=== PATIENT | male | born 1940 | race Caucasian/White ===

== ENCOUNTER 2019-12-02 04:48 | Emergency (ER) | payer OTHER ==
[2019-12-02 05:24] LABS: Absolute Lymphocytes (CBC) 1.1 K/uL (0.7-4.9); Basophils % 0.6 % (0-1.3); Hematocrit 40.2 % (39.6-49.0); Lymphocytes % 8.7 % (15.3-44.8); MPV 7.5 fL (7.6-11.3)
[2019-12-02 05:33] LABS: Protime INR 1.05
[2019-12-02 06:06] LABS: Albumin 3.2 g/dL (3.4-5.0); Bilirubin Direct 0.1 mg/dL (0-0.2); Bilirubin Total 0.5 mg/dL (0.2-1.0); Protein, Total 7.4 g/dL (6.4-8.2)
[2019-12-02 06:07] LABS: Potassium 4.3 mmol/L (3.5-5.1)
[2019-12-02 06:08] LABS: Troponin (Emerg Dept Use Only) 41.7 ng/mL (0.0-0.045)
[2019-12-02] MEDS ORDERED: ONDANSETRON 4 MG/2 ML VIAL ONE ×2 (06:36→08:33)
[2019-12-02] MEDS ORDERED: MORPHINE 2 MG/ML SYR ONE (06:36)
--- NOTE | 2019-12-02 06:38 | ER ---
Nurse's Notes [facility] Name: Alireza Pulido Age: 79 yrs Sex: Male : 1940 Arrival Date: 12/02/2019 Time: 04:49 Bed 6 Private MD: Diagnosis: Non-ST elevation (NSTEMI) myocardial infarction;Chest pain, unspecified;Pleural effusion in conditions classified elsewhere;Hypotension Presentation: 12/01 04:50 Chief complaint: EMS states: toned out for report of pt having fallen after slipping bb when he got up to go the bathroom pt was unable to get up without assistance pt c/o chest pain with inspiration. Care prior to arrival: Medication(s) given: ASA, 81 mg, x 4. Mechanism of Injury: Fall from standing position. Trauma event details: Injury occurred in the [facility], Injury occurred: at home. Injury occurred: December 02, 2019. 04:50 Acuity: VANDA 2 bb 04:50 Method Of Arrival: EMS: [facility] bb 04:54 Coronavirus screen: At this time, the client does not indicate any symptoms associated bb with coronavirus-19. Ebola Screen: No symptoms or risks identified at this time. Initial Sepsis Screen: Does the patient meet any 2 criteria? No. Patient's initial sepsis screen is negative. Does the patient have a suspected source of infection? No. Patient's initial sepsis screen is negative. Risk Assessment: Do you want to hurt yourself or someone else? Patient reports no desire to harm self or others. Onset of symptoms was December 02, 2019. Care prior to arrival: Glucose check: 144. Trauma Activation: Alert Physician: ED Physician; Name: Rufus; Notified At: 04:43; Arrived At: 04:51 Physician: General Surgeon; Name: ; Notified At: 04:43; Arrived At: Physician: Radiology; Name: Dalila Horner; Notified At: 04:43; Arrived At: 04:47 Physician: Respiratory; Name: ; Notified At: 04:43; Arrived At: Physician: Lab; Name: ; Notified At: 04:43; Arrived At: Historical: - Allergies: 04:55 No Known Allergies; bb - Home Meds: 04:55 Aspirin Oral [Active]; vitamins [Active]; bb - PMHx: 04:55 CVA; bb - PSHx: 04:55 Appendectomy; Tonsillectomy; Cataracts; bb - Immunization history: Last tetanus immunization: unknown. - Social history:: Smoking status: Patient denies any tobacco usage or history of. Patient uses alcohol, but reports only rare drinking. Patient/guardian denies using street drugs. Screenin:52 Abuse screen: Denies injuries from another. Nutritional screening: No deficits noted. jb4 Tuberculosis screening: No symptoms or risk factors identified. Fall risk At risk due to age, prior history of falls. 04:53 Fall Risk Fall in past 12 months (25 points). Total Ma Fall Scale indicates Low Risk jb4 Score (25-44 pts). Fall prevention measures have been instituted. Side Rails Up X 2 Placed close to Nursing Station Frequent Obs/Assesments occuring As available Patient and Family Educated on Fall Prevention Program and strategies. Primary Survey: 04:52 NO uncontrolled hemorrhage observed. A: The patient is alert. Airway: patent, No jb4 supplemental oxygen in use on arrival. Oral cavity: clear, gag reflex present. Breathing/Chest: Respiratory pattern: regular, Respiratory effort: spontaneous, unlabored, Breath sounds: clear, bilaterally. Chest inspection: symmetrical rise and fall of the chest. Circulation: Skin color: pink, Skin temperature: warm, dry. Disability Alert. Exposure/Environment: All clothing and personal items were removed. Forensic evidence collection is not deemed to be indicated at this time. Items placed in patient belonging bag. 05:41 Reassessment Airway Airway Patent Breathing/Chest Respiratory pattern Regular jb4 Respiratory effort Spontaneous Unlabored Chest inspection Symmetrical Circulation Color [place] Temperature Warm Dry Disability Alert. Secondary Survey: 04:52 HEENT: No deficits noted. Gastrointestinal: No deficits noted. Abdomen is soft, jb4 non-distended. : No signs and/or symptoms were reported regarding the genitourinary system. Musculoskeletal: Circulation, motion, and sensation intact. Range of motion: intact in all extremities. Assessment: 04:50 General: Appears in no apparent distress. Behavior is calm, cooperative. Pain: bb Complains of pain in chest Pain currently is 5 out of 10 on a pain scale. 04:53 General: Appears in no apparent distress. comfortable, Behavior is calm, cooperative. jb4 Pain: Complains of pain in chest Pain currently is 5 out of 10 on a pain scale. Neuro: Level of Consciousness is awake, alert, obeys commands, Oriented to person, place, time, situation. Cardiovascular: Heart tones S1 S2 present Patient's skin is warm and dry. Respiratory: Airway is patent Respiratory effort is even, unlabored, Respiratory pattern is regular, symmetrical, Breath sounds are clear bilaterally. GI: No signs and/or symptoms were reported involving the gastrointestinal system. : No signs and/or symptoms were reported regarding the genitourinary system. EENT: No signs and/or symptoms were reported regarding the EENT system. Derm: Skin is intact, Skin is pink, warm \\T\\ dry. Musculoskeletal: Circulation, motion, and sensation intact. Range of motion: intact in all extremities. 05:42 Reassessment: Patient appears in no apparent distress at this time. Patient and/or jb4 family updated on plan of care and expected duration. Pain level reassessed. Patient is alert, oriented x 3, equal unlabored respirations, skin warm/dry/pink. 06:15 Reassessment: Patient appears in no apparent distress at this time. Patient and/or jb4 family updated on plan of care and expected duration. Pain level reassessed. Patient is alert, oriented x 3, equal unlabored respirations, skin warm/dry/pink. Pt reports being at a friends house earlier. Denies consuming alcohol or taking enhancement agents such as viagra. 07:05 Reassessment: PT in CT. ph 08:15 Reassessment: Patient appears in no apparent distress at this time. Patient is alert, ph oriented x 3, equal unlabored respirations, skin warm/dry/pink. Pt c/o chest pain, states, "They gave some morphine but it really didn't help." ERP notified, pain medication and repeat EKG ordered. 08:37 Reassessment: Patient appears in no apparent distress at this time. Patient and/or ph family updated on plan of care and expected duration. Pain level reassessed. Patient is alert, oriented x 3, equal unlabored respirations, skin warm/dry/pink. Dr Oconnor at bedside to speak w/ pt, pt states that EMS administered 81 mg ASA x 4 en route to ED. 09:35 Reassessment: Patient appears in no apparent distress at this time. Patient and/or ph family updated on plan of care and expected duration. Pain level reassessed. Patient is alert, oriented x 3, equal unlabored respirations, skin warm/dry/pink. Report given to [facility] [employer], pt flown to [facility]. Vital Signs: 04:50 BP 103 / 57; Pulse 101; Resp 18 S; Temp 99.1(O); Pulse Ox 95% on R/A; Weight 108.86 kg bb (R); Height 6 ft. 0 in. (182.88 cm) (R); Pain 5/10; 05:42 BP 108 / 50; Pulse 99; Resp 19; Pulse Ox 99% on R/A; jb4 06:00 BP 114 / 63; Pulse 94; Resp 16; Pulse Ox 98% on R/A; jb4 06:30 BP 90 / 50; Pulse 110; Resp 16; Pulse Ox 95% on R/A; jb4 07:45 BP 98 / 60; Pulse 95; Resp 18; Temp 98.7; Pulse Ox 98% on R/A; ph 08:45 BP 96 / 59; Pulse 86; Resp 18; Temp 98.1; Pulse Ox 97% on R/A; ph 09:37 BP 98 / 62; Pulse 91; Resp 16; Temp 98.4; Pulse Ox 97% on R/A; ph 04:50 Body Mass Index 32.55 (108.86 kg, 182.88 cm) bb Ryan Coma Score: 04:52 Eye Response: spontaneous(4). Verbal Response: oriented(5). Motor Response: obeys jb4 commands(6). Total: 15. 05:42 Eye Response: spontaneous(4). Verbal Response: oriented(5). Motor Response: obeys jb4 commands(6). Total: 15. 06:00 Eye Response: spontaneous(4). Verbal Response: oriented(5). Motor Response: obeys jb4 commands(6). Total: 15. 06:30 Eye Response: spontaneous(4). Verbal Response: oriented(5). Motor Response: obeys jb4 commands(6). Total: 15. 07:45 Eye Response: spontaneous(4). Verbal Response: oriented(5). Motor Response: obeys ph commands(6). Total: 15. 08:45 Eye Response: spontaneous(4). Verbal Response: oriented(5). Motor Response: obeys ph commands(6). Total: 15. 09:37 Eye Response: spontaneous(4). Verbal Response: oriented(5). Motor Response: obeys ph commands(6). Total: 15. Trauma Score (Adult): 04:52 Eye Response: spontaneous(1); Verbal Response: oriented(1); Motor Response: obeys jb4 commands(2); Systolic BP: > 89 mm Hg(4); Respiratory Rate: 10 to 29 per min(4); Etlan Score: 15; Trauma Score: 12 05:42 Eye Response: spontaneous(1); Verbal Response: oriented(1); Motor Response: obeys jb4 commands(2); Systolic BP: > 89 mm Hg(4); Respiratory Rate: 10 to 29 per min(4); Etlan Score: 15; Trauma Score: 12 06:00 Eye Response: spontaneous(1); Verbal Response: oriented(1); Motor Response: obeys jb4 commands(2); Systolic BP: > 89 mm Hg(4); Respiratory Rate: 10 to 29 per min(4); Ryan Score: 15; Trauma Score: 12 06:30 Eye Response: spontaneous(1); Verbal Response: oriented(1); Motor Response: obeys jb4 commands(2); Systolic BP: > 89 mm Hg(4); Respiratory Rate: 10 to 29 per min(4); Etlan Score: 15; Trauma Score: 12 07:45 Eye Response: spontaneous(1); Verbal Response: oriented(1); Motor Response: obeys ph commands(2); Systolic BP: > 89 mm Hg(4); Respiratory Rate: 10 to 29 per min(4); Ryan Score: 15; Trauma Score: 12 08:45 Eye Response: spontaneous(1); Verbal Response: oriented(1); Motor Response: obeys ph commands(2); Systolic BP: > 89 mm Hg(4); Respiratory Rate: 10 to 29 per min(4); Ryan Score: 15; Trauma Score: 12 09:37 Eye Response: spontaneous(1); Verbal Response: oriented(1); Motor Response: obeys ph commands(2); Systolic BP: > 89 mm Hg(4); Respiratory Rate: 10 to 29 per min(4); Etlan Score: 15; Trauma Score: 12 ED Course: 04:49 Patient arrived in ED. ag3 04:50 Jeff Hooper MD is Attending Physician. 7 04:51 Suraj Meza, RN is Primary Nurse. jb4 04:52 Triage completed. bb 04:52 Patient has correct armband on for positive identification. Bed in low position. Call jb4 light in reach. Side rails up X 1. 04:52 Patient maintains SpO2 saturation greater than 95% on room air. Thermoregulation: warm jb4 blanket given to patient. 04:53 classroom monitor on. Pulse ox on. NIBP on. jb4 04:55 Arm band placed on Patient placed in an exam room, on a stretcher, on alarm security or surveillance monitor, bb on pulse oximetry. EKG completed in triage. Results shown to MD. 05:10 Initial lab(s) drawn, by wi, sent to lab. Inserted saline lock: 20 gauge in right jb4 antecubital area, using aseptic technique. Blood collected. 05:27 XRAY Chest (1 view) In Process Unspecified. EDMS 06:36 Prince Ferreira MD is Hospitalizing Provider. mh7 07:01 CT Chest Abdomen Pelvis W/O Contrast In Process Unspecified. EDMS 08:30 EKG done, by ED staff, reviewed by Damaso Oconnor MD. dh3 08:39 Attending Physician role handed off by Jeff Hooper MD marco antonio 08:39 Damaso Oconnor MD is Attending Physician. marco antonio 08:[address] Oconnor with Shraddha Wang Rn the [facility] Transfer eb Center. 08:42 connected the vehicle check in clerk cardiopulmonary technologist chief for [facility] with Dr. Oconnor for patient eb transfer consultation. 08:51 administrative approval given by Shraddha Wang/ patient has been accepted to [facility] Park Maintenance Technician/ Dr. Mackay has accepted the patient in transfer. report to be called to the transfer center at [phone]. 09:10 Inserted saline lock: 18 gauge in left antecubital area, using aseptic technique. dh3 09:35 No provider procedures requiring assistance completed. Patient transferred, IV remains ph in place. Administered Medications: 06:27 Drug: Zofran (Ondansetron) 4 mg Route: IVP; Site: right antecubital; jb4 06:52 Follow up: Response: No adverse reaction jb4 06:29 Drug: morphine 2 mg Route: IVP; Site: right antecubital; jb4 06:51 Follow up: Response: No adverse reaction; Pain is decreased; RASS: Alert and Calm (0) jb4 06:43 Not Given (Hemodynamic Parameters): Lopressor 5 mg IVP every 5 minutes; Hold for SBP < jb4 100 or HR < 60. x3 06:46 Drug: NS 0.9% 500 ml Route: IV; Rate: bolus; Site: right antecubital; jb4 07:45 Follow up: Response: No adverse reaction; IV Status: Completed infusion; IV Intake: ph 500ml 08:00 Not Given (Other Intervention Used): Lovenox 1 mg/kg Sub-Q once ph 08:15 Drug: PlaVIX 300 mg Route: PO; ph 09:38 Follow up: Response: No adverse reaction ph 08:18 Drug: Heparin (CO-Bolus No thrombolytic) - HEParin 60 units/kg {Co-Signature: sv ph (Mariam Brown RN).} Route: IVP; Site: right antecubital; 09:37 Follow up: Response: No adverse reaction ph 08:20 Drug: Heparin (CO Drip) 12 units/kg/hr - (HEParin 14346 units, D5W 500 ml) ph {Co-Signature: sv (Mariam Brown RN).} Route: IV; Rate: calculated rate; Site: right antecubital; 09:37 Follow up: IV Status: Infusion continued upon transfer ph 08:28 Drug: Zofran (Ondansetron) 4 mg Route: IVP; Site: right antecubital; ph 09:39 Follow up: Response: No adverse reaction ph 08:30 Drug: fentaNYL (PF) 25 mcg Route: IVP; Site: right antecubital; ph 09:00 Follow up: Response: No adverse reaction; Pain is decreased; RASS: Alert and Calm (0) ph Intake: 04:50 PO: 0ml; Total: 0ml. bb 07:45 IV: 500ml; Total: 500ml. ph Outcome: 06:37 Decision to Hospitalize by Provider. mh7 08:54 ER care complete, transfer ordered by . marco antonio 09:35 [facility]red by helicopter [facility] form completed. ph X-rays sent w/ patient. 09:35 Condition: stable 09:35 Instructed on the need for transfer. 09:35 Patient's length of stay was not longer than 2 hours. 09:39 Patient left the ED. ph Signatures: Dispatcher [employer] EDMS Damaso Oconnor MD MD cha Ballard, Brenda, RN RN Sulma Ordonez RN RN Suraj Meza RN RN jb4 Giana Olson [facility] Pamela Barber Alice Jeff Sandoval MD MD [facility] Mariam Brown RN sv Corrections: (The following items were deleted from the chart) 04:55 04:53 Fall Risk Fall in past 12 months (25 points). jb4 jb4 06:34 06:31 morphine 2 mg IVP in right antecubital jb4 jb4 06:34 06:29 Zofran (Ondansetron) 4 mg IVP in right antecubital jb4 jb4 08:51 08:[address] Oconnor with the [facility] Transfer Center. eb eb
--- NOTE | 2019-12-02 06:38 | EDPHYS ---
Physician Documentation [facility] Name: Alireza Pulido Age: 79 yrs Sex: Male : 1940 Arrival Date: 12/02/2019 Time: 04:49 Bed 6 Private MD: ED Physician Damaso Oconnor HPI: 12/01 05:01 This 79 yrs old Male presents to ER via EMS with complaints of Fall Injury. [facility] 05:02 Severity of symptoms: At their worst the symptoms were moderate, earlier today, in the [facility] emergency department the symptoms have improved, moderately. 06:29 The patient or guardian reports chest pain that is located primarily in the substernal [facility] area. Onset: today, at 02:00. The pain does not radiate. Associated signs and symptoms: Pertinent negatives: abdominal pain, cough, diaphoresis, dizziness, headache, lower extremity pain, lower extremity swelling, lightheadedness, nausea, near syncope, palpitations, recent travel, shortness of breath, syncope, vomiting. The chest pain is described as a pressure. Duration: The patient or guardian reports multiple episodes, that are intermittent, that wax and wane, with no pattern. Modifying factors: The symptoms are alleviated by ASA, 81mg X4. the symptoms are aggravated by nothing. Severity of pain: At its worst the pain was moderate today, in the emergency department the pain has improved moderately. EMS care prior to arrival includes: aspirin. 06:29 Patient states that he slid out of bed onto floor and was having chest pain. He denies [facility] any falls onto floor or any injuries.. Historical: - Allergies: 04:55 No Known Allergies; bb - Home Meds: 04:55 Aspirin Oral [Active]; vitamins [Active]; bb - PMHx: 04:55 CVA; bb - PSHx: 04:55 Appendectomy; Tonsillectomy; Cataracts; bb - Immunization history: Last tetanus immunization: unknown. - Social history:: Smoking status: Patient denies any tobacco usage or history of. Patient uses alcohol, but reports only rare drinking. Patient/guardian denies using street drugs. ROS: 05:02 Constitutional: Negative for fever, chills, and weight loss, Eyes: Negative for injury, [facility] pain, redness, and discharge, ENT: Negative for injury, pain, and discharge, Neck: Negative for injury, pain, and swelling, Abdomen/GI: Negative for abdominal pain, nausea, vomiting, diarrhea, and constipation, Back: Negative for injury and pain, : Negative for injury, bleeding, discharge, and swelling, MS/Extremity: Negative for injury and deformity, Skin: Negative for injury, rash, and discoloration, Neuro: Negative for headache, weakness, numbness, tingling, and seizure, Psych: Negative for depression, anxiety, suicide ideation, homicidal ideation, and hallucinations, Allergy/Immunology: Negative for hives, rash, and allergies, Endocrine: Negative for neck swelling, polydipsia, polyuria, polyphagia, and marked weight changes, Hematologic/Lymphatic: Negative for swollen nodes, abnormal bleeding, and unusual bruising. Exam: 05:02 Constitutional: This is a well developed, well nourished patient who is awake, alert, mh7 and in no acute distress. Head/Face: Normocephalic, atraumatic. Eyes: Pupils equal round and reactive to light, extra-ocular motions intact. Lids and lashes normal. Conjunctiva and sclera are non-icteric and not injected. Cornea within normal limits. Periorbital areas with no swelling, redness, or edema. Neck: Trachea midline, no thyromegaly or masses palpated, and no cervical lymphadenopathy. Supple, full range of motion without nuchal rigidity, or vertebral point tenderness. No Meningismus. Chest/axilla: Normal chest wall appearance and motion. Nontender with no deformity. No lesions are appreciated. Cardiovascular: Regular rate and rhythm with a normal S1 and S2. No gallops, murmurs, or rubs. Normal PMI, no JVD. No pulse deficits. Respiratory: Lungs have equal breath sounds bilaterally, clear to auscultation and percussion. No rales, rhonchi or wheezes noted. No increased work of breathing, no retractions or nasal flaring. Abdomen/GI: Soft, non-tender, with normal bowel sounds. No distension or tympany. No guarding or rebound. No evidence of tenderness throughout. Back: No spinal tenderness. No costovertebral tenderness. Full range of motion. Skin: Warm, dry with normal turgor. Normal color with no rashes, no lesions, and no evidence of cellulitis. MS/ Extremity: Pulses equal, no cyanosis. Neurovascular intact. Full, normal range of motion. Neuro: Awake and alert, GCS 15, oriented to person, place, time, and situation. Cranial nerves II-XII grossly intact. Motor strength 5/5 in all extremities. Sensory grossly intact. Cerebellar exam normal. Normal gait. Psych: Awake, alert, with orientation to person, place and time. Behavior, mood, and affect are within normal limits. Vital Signs: 04:50 BP 103 / 57; Pulse 101; Resp 18 S; Temp 99.1(O); Pulse Ox 95% on R/A; Weight 108.86 kg bb (R); Height 6 ft. 0 in. (182.88 cm) (R); Pain 5/10; 05:42 BP 108 / 50; Pulse 99; Resp 19; Pulse Ox 99% on R/A; jb4 06:00 BP 114 / 63; Pulse 94; Resp 16; Pulse Ox 98% on R/A; jb4 06:30 BP 90 / 50; Pulse 110; Resp 16; Pulse Ox 95% on R/A; jb4 07:45 BP 98 / 60; Pulse 95; Resp 18; Temp 98.7; Pulse Ox 98% on R/A; ph 08:45 BP 96 / 59; Pulse 86; Resp 18; Temp 98.1; Pulse Ox 97% on R/A; ph 09:37 BP 98 / 62; Pulse 91; Resp 16; Temp 98.4; Pulse Ox 97% on R/A; ph 04:50 Body Mass Index 32.55 (108.86 kg, 182.88 cm) bb Ryan Coma Score: 04:52 Eye Response: spontaneous(4). Verbal Response: oriented(5). Motor Response: obeys jb4 commands(6). Total: 15. 05:42 Eye Response: spontaneous(4). Verbal Response: oriented(5). Motor Response: obeys jb4 commands(6). Total: 15. 06:00 Eye Response: spontaneous(4). Verbal Response: oriented(5). Motor Response: obeys jb4 commands(6). Total: 15. 06:30 Eye Response: spontaneous(4). Verbal Response: oriented(5). Motor Response: obeys jb4 commands(6). Total: 15. 07:45 Eye Response: spontaneous(4). Verbal Response: oriented(5). Motor Response: obeys ph commands(6). Total: 15. 08:45 Eye Response: spontaneous(4). Verbal Response: oriented(5). Motor Response: obeys ph commands(6). Total: 15. 09:37 Eye Response: spontaneous(4). Verbal Response: oriented(5). Motor Response: obeys ph commands(6). Total: 15. Trauma Score (Adult): 04:52 Eye Response: spontaneous(1); Verbal Response: oriented(1); Motor Response: obeys jb4 commands(2); Systolic BP: > 89 mm Hg(4); Respiratory Rate: 10 to 29 per min(4); Holland Score: 15; Trauma Score: 12 05:42 Eye Response: spontaneous(1); Verbal Response: oriented(1); Motor Response: obeys jb4 commands(2); Systolic BP: > 89 mm Hg(4); Respiratory Rate: 10 to 29 per min(4); Holland Score: 15; Trauma Score: 12 06:00 Eye Response: spontaneous(1); Verbal Response: oriented(1); Motor Response: obeys jb4 commands(2); Systolic BP: > 89 mm Hg(4); Respiratory Rate: 10 to 29 per min(4); Holland Score: 15; Trauma Score: 12 06:30 Eye Response: spontaneous(1); Verbal Response: oriented(1); Motor Response: obeys jb4 commands(2); Systolic BP: > 89 mm Hg(4); Respiratory Rate: 10 to 29 per min(4); Holland Score: 15; Trauma Score: 12 07:45 Eye Response: spontaneous(1); Verbal Response: oriented(1); Motor Response: obeys ph commands(2); Systolic BP: > 89 mm Hg(4); Respiratory Rate: 10 to 29 per min(4); Ryan Score: 15; Trauma Score: 12 08:45 Eye Response: spontaneous(1); Verbal Response: oriented(1); Motor Response: obeys ph commands(2); Systolic BP: > 89 mm Hg(4); Respiratory Rate: 10 to 29 per min(4); Holland Score: 15; Trauma Score: 12 09:37 Eye Response: spontaneous(1); Verbal Response: oriented(1); Motor Response: obeys ph commands(2); Systolic BP: > 89 mm Hg(4); Respiratory Rate: 10 to 29 per min(4); Ryan Score: 15; Trauma Score: 12 MDM: 04:57 Patient medically screened. [facility] 06:29 Differential diagnosis: abnormal EKG, acute myocardial infarction, acute pericarditis, mh7 anxiety, coronary artery disease chest wall pain, congestive heart failure costochondritis, myocarditis, pericarditis, pneumonia. HEART Score: History: Moderately Suspicious (1), ECG: Non specific repolarization disturbance / LBTB / PM (1), Age: > or = 65 years (2), Risk Factors: No Risk Factors Known (0), Troponin: > or = 3 x Normal Limit (2), Total Score = 5. The patient was not given aspirin in the Emergency Department. Administered by EMS. Data reviewed: vital signs, nurses notes, EMS record, lab test result(s), cardiac enzymes, CBC, electrolytes, urinalysis, radiologic studies, plain films. Data interpreted: Pulse oximetry: on room air is 99 %. Interpretation: normal. Counseling: I had a detailed discussion with the patient and/or guardian regarding: the historical points, exam findings, and any diagnostic results supporting the discharge/admit diagnosis, lab results, radiology results, the need for further work-up and treatment in the hospital. Physician consultation: Janes Carpio MD was contacted at 06:22, regarding patient's condition, and will see patient in inpatient room, would like admission per Dr. Prince Hanna ROBERTS. 12/01 04:57 Order name: Basic Metabolic Panel; Complete Time: 06:09 12/01 04:57 Order name: CBC with Diff; Complete Time: 07:50 12/01 04:57 Order name: LFT's; Complete Time: 06:09 12/01 04:57 Order name: Magnesium; Complete Time: 06:09 12/01 04:57 Order name: NT PRO-BNP; Complete Time: 06:12/01 04:57 Order name: PT-INR; Complete Time: 05:43 12/01 04:57 Order name: Troponin (emerg Dept Use Only); Complete Time: 06:09 12/01 04:57 Order name: XRAY Chest (1 view) [facility] 12/01 05:22 Order name: Lipase; Complete Time: 06:09 EDMS 12/01 05:38 Order name: Manual Differential; Complete Time: 07:50 EDMS 12/01 06:39 Order name: CT Chest Abdomen Pelvis W/O Contrast; Complete Time: 07:50 7 12/01 08:33 Order name: Urine Dipstick--Ancillary (enter results) eb 12/01 08:35 Order name: PTT, Activated Partial Thromb EDIA 12/01 04:57 Order name: EKG; Complete Time: 04:58 [facility] 12/01 04:57 Order name: Cardiac monitoring; Complete Time: 04:59 [facility] 12/01 04:57 Order name: EKG - Nurse/Tech; Complete Time: 04:59 [facility] 12/01 04:57 Order name: IV Saline Lock; Complete Time: 05:19 7 12/01 04:57 Order name: Labs collected and sent; Complete Time: 05:19 [facility] 12/01 04:57 Order name: O2 Per Protocol; Complete Time: 04:59 [facility] 12/01 04:57 Order name: O2 Sat Monitoring; Complete Time: 04:59 7 12/01 08:56 Order name: IV Saline Lock - Large Bore; Complete Time: 09:11 marco antonio Administered Medications: 06:27 Drug: Zofran (Ondansetron) 4 mg Route: IVP; Site: right antecubital; jb4 06:52 Follow up: Response: No adverse reaction jb4 06:29 Drug: morphine 2 mg Route: IVP; Site: right antecubital; jb4 06:51 Follow up: Response: No adverse reaction; Pain is decreased; RASS: Alert and Calm (0) jb4 06:43 Not Given (Hemodynamic Parameters): Lopressor 5 mg IVP every 5 minutes; Hold for SBP < jb4 100 or HR < 60. x3 06:46 Drug: NS 0.9% 500 ml Route: IV; Rate: bolus; Site: right antecubital; jb4 07:45 Follow up: Response: No adverse reaction; IV Status: Completed infusion; IV Intake: ph 500ml 08:00 Not Given (Other Intervention Used): Lovenox 1 mg/kg Sub-Q once ph 08:15 Drug: PlaVIX 300 mg Route: PO; ph 09:38 Follow up: Response: No adverse reaction ph 08:18 Drug: Heparin (DC-Bolus No thrombolytic) - HEParin 60 units/kg {Co-Signature: sv ph (Mariam Brown RN).} Route: IVP; Site: right antecubital; 09:37 Follow up: Response: No adverse reaction ph 08:20 Drug: Heparin (DC Drip) 12 units/kg/hr - (HEParin 40507 units, D5W 500 ml) ph {Co-Signature: sv (Mariam Brown RN).} Route: IV; Rate: calculated rate; Site: right antecubital; 09:37 Follow up: IV Status: Infusion continued upon transfer ph 08:28 Drug: Zofran (Ondansetron) 4 mg Route: IVP; Site: right antecubital; ph 09:39 Follow up: Response: No adverse reaction ph 08:30 Drug: fentaNYL (PF) 25 mcg Route: IVP; Site: right antecubital; ph 09:00 Follow up: Response: No adverse reaction; Pain is decreased; RASS: Alert and Calm (0) ph Disposition: 12/02/19 08:54 Transfer ordered to [facility]. Diagnosis are Non-ST elevation (NSTEMI) myocardial infarction, Chest pain, unspecified, Pleural effusion in conditions classified elsewhere, Hypotension. - Reason for transfer: Higher level of care. - Accepting physician is dr flynn. - Condition is Serious. - Problem is new. - Symptoms have worsened. Signatures: Dispatcher [employer] [facility] Damaso Oconnor MD MD cha Ballard, Brenda RN RN Sulma Ayala RN RN ph Bryson, James, RN RN jbPamela Warren Maurice, MD MD Yunior Brown RN sv Corrections: (The following items were deleted from the chart) 05:22 05:02 LIPASE+C.LAB.BRZ ordered. [facility] 06:33 05:01 Details of fall: The patient fell from an upright position, while standing, [place] [id number] 06:33 05:01 Onset: The symptoms/episode began/occurred today, at 02:00, [place] [id number] 06:33 05:01 Associated injuries: The patient sustained injury to the chest, specifically the [facility] mid-sternal area, mh7 07:37 06:37 Hospitalization Ordered by Prince Hanna ROBERTS for Inpatient Admission. Preliminary eb diagnosis is Non STEMI. Bed requested for Telemetry/MedSurg (Inpatient). Status is Inpatient Admission. Condition is Stable. Problem is new. Symptoms have improved. mh7 08:47 07:37 12/02/2019 06:37 Hospitalization Ordered by Prince Hanna ROBERTS for Inpatient marco antonio Admission. Preliminary diagnosis is Non STEMI. Bed requested for Telemetry/MedSurg (Inpatient). Status is Inpatient Admission. Condition is Stable. Problem is new. Symptoms have improved. eb 08:47 08:47 12/02/2019 06:37 Hospitalization Ordered by Prince Hanna ROBERTS for Inpatient marco antonio Admission. Preliminary diagnosis is Non STEMI; Angina pectoris; Hypotension; Pleural effusion in conditions classified elsewhere. Bed requested for Telemetry/MedSurg (Inpatient). Status is Inpatient Admission. Condition is Stable. Problem is new. Symptoms have improved. marco antonio 09:39 08:54 12/02/2019 08:54 Transfer ordered to [facility]. ph Diagnosis is Non-ST elevation (NSTEMI) myocardial infarction; Chest pain, unspecified; Pleural effusion in conditions classified elsewhere; Hypotension. Reason for transfer: Higher level of care. Accepting physician is dr flynn. Condition is Serious. Problem is new. Symptoms have worsened. marco antonio
[2019-12-02] MEDS ORDERED: NA CHLORIDE 0.9% 500 ML ONE (06:57)
[2019-12-02 07:03] LABS: Blood Morphology Comment NOT SEEN (NOT SEEN); Platelet Estimate ADEQ
--- NOTE | 2019-12-02 07:28 | RAD REPORT ---
EXAM DESCRIPTION: CT - Chest Abd Pelvis Wo Con - 12/02/2019 7:01 am CLINICAL HISTORY: CHEST PAIN, abdominal pain, fall COMPARISON: No comparisons TECHNIQUE: Axial 5 millimeter thick images of the chest, abdomen and pelvis were obtained without IV contrast. Oral contrast was administered. All CT scans are performed using dose optimization technique as appropriate and may include automated exposure control or mA/KV adjustment according to patient size. FINDINGS: No pneumothorax or pulmonary contusion seen. Scarring changes are present in the lung pare nchyma. No pneumothorax is present. Moderate-sized partially loculated left pleural effusion is prese nt. There is partial left lower lobe atelectasis. Small infiltrate within the atelectatic lung cannot be excluded. Lung mass is unlikely but cannot be fully evaluated in the setting of atelectasis. Pleu ral fluid is low attenuation. Pleural blood is not suspected. No chest wall mass or abnormal axillary lymphadenopathy seen. Mediastinal and hilar regions show no mass or lymphadenopathy. Minimal pericardial effusion seen. Patient has old rib fractures in the le ft 7th-10th ribs. No acute rib fracture is seen. No dislocation of either humeral head. The liver, spleen and pancreas show no significant findings for non contrast imaging. Gallbladder an d biliary tree are normal. No hydronephrosis or suspicious renal mass. Isodense masses and pyelonephritis cannot be excluded on non contrast imaging. No adrenal abnormalities. No urinary bladder abnormalities. No dilated bowel loops or focal ball bowel wall thickening. No free air, free fluid or inflammatory stranding. No mass or bulky lymphadenopathy. Small umbilical fat only hernia is present no significa nce. Prominent vertebral body degenerative changes are present. An acute thoracolumbar vertebral body frac ture is not identified. No fracture of the bony pelvis or proximal femora. Transverse fracture line i s present at the sacrum coccygeal junction. Fracture line is somewhat indistinct suggesting that this may be subacute and related to a prior fall. No displacement. Patient may have slight contusion in t he subcutaneous fat lateral to the left hip joint. IMPRESSION: Moderate size partially loculated left pleural effusion with partial atelectasis of the left lower lobe. A small mass or infiltrate could be masked in the atelectatic lung. No acute rib fracture. Patient has multiple old lower left rib fractures. The left-sided pleural flui d is not suspected to have a hemothorax component. No traumatic injury to the abdomen or pelvis of significance. Patient may have minimal contusion in t he subcutaneous fat lateral to the left hip joint. Nondisplaced fracture is present at the sacrum coccygeal junction. The appearance suggests a subacute injury and may be related to a prior fall. This can be correlated with history or localized pain sym ptoms. No vertebral body, bony pelvic or proximal femoral fracture.
[2019-12-02] MEDS ORDERED: HEPARIN 5000 UNIT/ML 1 ML VIAL ONE (08:16)
[2019-12-02] MEDS ORDERED: HEPARIN/D5W 25,000 UNIT/500 ML BAG IV ONE (08:16)
[2019-12-02] MEDS ORDERED: CLOPIDOGREL 75 MG TABLET ONE (08:16)
[2019-12-02] MEDS ORDERED: FENTANYL CITR 100 MCG/2 ML ONE (08:33)
[2019-12-02 09:57] VITALS: O2SAT 97
[2019-12-02 09:58] VITALS: BP 98/62; TEMP 98.4
[2019-12-02 10:23] LABS: Urine Blood NEGATIVE (NEG); Urine Glucose NEGATIVE (NEG); Urine Protein NEGATIVE (NEG); Urine Specific Gravity 1.025 (1.005-1.030); Urine pH 5.5 (5.0-7.0)
--- NOTE | 2019-12-03 11:13 | EKG ---
Test Date: 2019-12-02 Test Time: 04:52:14 Forensic Ballistics Expert: ASIF MEASUREMENT RESULTS: Intervals: Rate: 94 TN: QRSD: 86 QT: 354 QTc: 442 [place]: P: TN: QRS: 2 T: -21 INTERPRETIVE STATEMENTS: afib,st elevation laterally c/w acute mi Cannot rule out Inferior infarct, age undetermined Abnormal ECG No previous ECG available for comparison Electronically Signed On 12-03-19 11:13:18 CDT by Janes Carpio
--- NOTE | 2019-12-04 07:47 | EKG ---
Test Date: 2019-12-02 Test Time: 08:30:30 Brass Roller: BETTE MEASUREMENT RESULTS: Intervals: Rate: 102 MT: QRSD: 82 QT: 380 QTc: 495 [place]: P: MT: QRS: 65 T: 9 INTERPRETIVE STATEMENTS: Atrial fibrillation with rapid ventricular response ST elevation, consider inferior injury or acute infarct ACUTE MD Abnormal ECG Compared to ECG 12/02/2019 06:21:47 Myocardial infarct finding now present ST (T wave) deviation still present Electronically Signed On 12-04-19 07:43:31 CDT by Janes Carpio
--- NOTE | 2019-12-04 07:47 | EKG ---
Test Date: 2019-12-02 Test Time: 06:21:47 Air Export Operations Agent: BLAYNE MEASUREMENT RESULTS: Intervals: Rate: 103 [place]: QRSD: 86 QT: 352 QTc: 461 [place]: P: [place]: QRS: 61 T: 79 INTERPRETIVE STATEMENTS: Atrial fibrillation with rapid ventricular response Nonspecific ST and T wave abnormality, probably digitalis effect Abnormal ECG Compared to ECG 12/02/2019 04:52:14 ST (T wave) deviation now present Myocardial infarct finding no longer present Electronically Signed On 12-04-19 07:43:34 CDT by Janes Carpio
--- NOTE | 2019-12-04 10:43 | RAD REPORT ---
EXAM DESCRIPTION: RAD - Chest Single View - 12/02/2019 5:27 am CLINICAL HISTORY: The patient is 79 years old and is Male; CHEST PAIN TECHNIQUE: Single upright view of the chest. COMPARISON: No relevant prior studies available. FINDINGS: Lungs: No pulmonary vascular congestion. No consolidation. Pleural space: Small left pleural effusion. No pneumothorax. Heart: Unremarkable. No cardiomegaly. Mediastinum: Unremarkable. Bones/joints: Multiple left lateral rib fractures, possibly acute. Degenerative changes in the bilateral shoulders. Upper abdomen: No free air in the visualized upper abdomen. IMPRESSION: 1. Multiple left lateral rib fractures, possibly acute. 2. Small left pleural effusion. No pneumothorax. Electronically signed by: Mariam Arnett MD 12/02/2019 6:32 AM CDT Due to temporary technical issues with the PACS/Fluency reporting system, reports are being signed by the in house radiologist without review as a courtesy to ensure prompt reporting. The interpreting r adiologist is fully responsible for the content of the report.
== END 2019-12-02 09:39 | disposition short-term general hospital (02) ==
LOC: ER 04:48 → ERHOLD 07:15 → UNDOADMIN 07:15 → UNDODISIN 09:36
DX: I21.4 Non-ST elevation (NSTEMI) myocardial infarction (principal); I95.9 Hypotension, unspecified; J91.8 Pleural effusion in other conditions classified elsewhere; S22.42XA Multiple fractures of ribs, left side, initial encounter for closed fracture; W01.0XXA Fall on same level from slipping, tripping and stumbling without subsequent striking against object, initial encounter; Y93.89 Activity, other specified; Y92.009 Unspecified place in unspecified non-institutional (private) residence as the place of occurrence of the external cause; Z79.82 Long term (current) use of aspirin; Z86.73 Personal history of transient ischemic attack (TIA), and cerebral infarction without residual deficits
CPT/HCPCS: 36415; 71045; 71250; 74176; 80048; 80076; 81003; 83690; 83735; 83880; 84484; 85025; 85610; 85730; 93005; 96361; 96365; 96375; 99285; G0390; J1644; J2270; J2405; J3010; J7040

== ENCOUNTER 2024-01-20 06:54 | Inpatient (IN) | payer OTHER ==
--- NOTE | 2024-01-20 07:50 | RAD REPORT ---
EXAMINATION: CT HEAD WITHOUT CONTRAST CLINICAL INDICATION: Male, 83 years old.WEAKNESS TECHNIQUE: Axial CT images from the skull base to the vertex without intravenous contrast. Coronal an d sagittal reformatted images were created from the data set. One or more of the following dose reduction techniques were used: Automated exposure control, adjustment of the mA and/or kV according to patient size, and/or iterative reconstruction. Unless otherwise specified, incidental findings do not require dedicated imaging follow-up. [id number]. COMPARISON: No prior exam. FINDINGS: INTRACRANIAL: No acute intracranial hemorrhage. No hydrocephalus. No mass effect or midline shift. Mo derate chronic small vessel ischemic changes. Cerebral atrophy. VASCULATURE: No visualized abnormalities in the arteries or dural venous sinuses. SCALP/SKULL: No significant soft tissue or osseous abnormalities. SINUSES: The visualized paranasal sinuses and mastoid air cells are predominantly clear. IMPRESSION: No acute intracranial abnormality.
--- NOTE | 2024-01-20 07:51 | RAD REPORT ---
EXAM: Chest Single View HISTORY: weakness COMPARISON: 12/02/2019 FINDINGS: LUNGS/PLEURA: Probably moderate bilateral pleural effusions and underlying atelectasis. Pulmonary julito ma suspected. MEDIASTINUM: The mediastinal silhouette is within normal limits. CARDIAC: Cardiomegaly. UPPER ABDOMEN: No significant abnormality. BONES: No acute fracture. LINES/TUBES/OTHER: N/A IMPRESSION: Suspect moderate bilateral pleural effusions and probably underlying atelectasis. Findings likely ind icate pulmonary edema.
[2024-01-20] MEDS ORDERED: NA CHLORIDE 0.9% 500 ML ONE (07:55)
[2024-01-20 08:10] LABS: Absolute Basophils 0.1 K/uL (0-0.5); Absolute Eosinophils 0.1 K/uL (0-0.5); Absolute Monocytes 0.9 K/uL (0.1-1.3); Absolute Neutrophil 8.3 K/uL (1.8-8.0); Basophils % 0.5 % (0-1.3); Eosinophils % 0.9 % (0-4.4); Hematocrit 34.5 % (39.6-49.0); Hemoglobin 11.3 g/dL (13.6-17.9); Lymphocytes % 9.5 % (15.3-44.8); MCH 32.8 pg (27.0-35.0); MCHC 32.7 g/dL (32.0-36.0); MCV 100.3 fL (80-100); MPV 7.4 fL (7.6-11.3); Monocytes % 9.1 % (3.3-12.3); Platelets 225 thou/uL (152-406); RBC Red Blood Cell Count 3.44 M/uL (4.33-5.43); Red Cell Distribution Width 15.8 % (12.1-15.2)
[2024-01-20 08:24] LABS: Albumin 2.8 g/dL (3.4-5.0); Albumin/Globulin Ratio 0.7 (1.1-1.8); Bilirubin Direct 0.4 mg/dL (0-0.2); Bilirubin Total 1.4 mg/dL (0.2-1.0); Globulin 4.2 g/dL (2.3-3.5); Magnesium 1.9 mg/dL (1.6-2.4); Troponin High Sensitivity 38.3 pg/mL (<58.9)
[2024-01-20 08:27] LABS: PT Prothrombin Time 14.3 SECONDS (9.4-12.5); PTT, Activated Partial Thromb 23.5 SECONDS (24.3-36.9); Protime INR 1.29
--- NOTE | 2024-01-20 09:39 | RAD REPORT ---
EXAMINATION: CT ABDOMEN AND PELVIS WITHOUT CONTRAST CLINICAL INDICATION: Male, 83 years old.weakness, abnormal LFTs TECHNIQUE: CT abdomen and pelvis was performed, without IV contrast, as per department protocol. Axia l, sagittal and coronal reconstructions were obtained. One or more of the following dose reduction techniques were used: Automated exposure control, adjustment of the mA and/or kV according to the pat ient size, and/or iterative reconstruction. Unless otherwise specified, incidental findings do not require dedicated imaging follow-up. [id number]. IV CONTRAST: Not administered. COMPARISON: 12/02/2019 CT FINDINGS: The lack of intravenous contrast limits the sensitivity of this exam for evaluation of solid visceral organs, vascular structures, and retroperitoneum. LOWER CHEST: Moderate right and small left pleural effusion. The left pleural effusion has underlying pleural thickening and is likely chronic. Coronary calcifications. Likely underlying atelectasis including right atelectasis at the left lower lobe. Atrial appendage occlusion device. LIVER: Nodular liver contour. No focal mass. GALLBLADDER/BILE DUCTS: Cholelithiasis. No CT evidence of acute cholecystitis.? PANCREAS: Pancreatic atrophy. SPLEEN: Normal size. No focal lesion. ADRENALS: Normal; no mass. KIDNEYS AND URETERS: Normal size and contour. No hydronephrosis. Punctate right nephrolithiasis. URINARY BLADDER: Normal contour. GASTROINTESTINAL TRACT: Stomach is non-dilated. Small bowel has normal course and caliber. No colonic wall thickening or pericolonic inflammatory changes. PERITONEUM: No free fluid. Small fat-containing umbilical hernia. ABDOMINAL AORTA AND OTHER VESSELS: Normal caliber aorta and IVC. REPRODUCTIVE ORGANS: No pathologic process. MUSCULOSKELETAL: No acute or suspicious osseous abnormality. Grade 1 anterolisthesis of L4 and L5. Mu ltilevel degenerative changes are present in the spine. Remote left-sided rib fractures. ADDITIONAL FINDINGS: None. IMPRESSION: No acute or significant abnormalities in the abdomen or pelvis, with evaluation limited by lack of IV contrast. Moderate right and small left pleural effusion. Left pleural effusion is chronic and has been present since at least 12/02/2019..
--- NOTE | 2024-01-20 10:20 | RAD REPORT ---
Abdomen Exam Limited: 01/20/2024 9:52 AM CLINICAL HISTORY: abnl lfts, weakness STUDY: Limited right upper quadrant ultrasound of abdomen. COMPARISON: Same day CT FINDINGS: Bile ducts: No extrahepatic biliary dilatation. Common bile duct measures 3 mm. Gallbladder: Cholelithiasis. No gallbladder wall thickening. No pericholecystic fluid. No sonographic Chamorro sign. IMPRESSION: Cholelithiasis without sonographic evidence of acute cholecystitis. No biliary duct dilatation.
--- NOTE | 2024-01-20 10:26 | ER ---
Nurse's Notes [facility] Name: Alireza Pulido Age: 83 yrs Sex: Male : 1940 Arrival Date: 01/20/2024 Time: 06:54 Bed 19 Private MD: Diagnosis: Weakness;Dehydration;Hypokalemia;Unspecified combined systolic (congestive) and diastolic (congestive) heart failure Presentation: 01/19 07:00 Chief complaint: EMS states: he feels weak upon waking up in the morning and falls rg5 down, sliding down the side of the bed. no LOC. pt feels light headed. Coronavirus screen: Client denies travel out of the [place] in the last 14 days. Ebola Screen: Patient negative for fever greater than or equal to 101.5 degrees Fahrenheit, and additional compatible Ebola Virus Disease symptoms. 07:00 Method Of Arrival: EMS: [facility] rg5 07:00 Initial Sepsis Screen: Does the patient meet any 2 criteria? No. Patient's initial rg5 sepsis screen is negative. Does the patient have a suspected source of infection? No. Patient's initial sepsis screen is negative. Risk Assessment: Do you want to hurt yourself or someone else? Patient reports no desire to harm self or others. Onset of symptoms was January 20, 2024. Care prior to arrival: Glucose check: 141 Oxygen administered. via nasal cannula. Mechanism of Injury: Fall from standing position. 07:00 Acuity: VANDA 3 rg5 Triage Assessment: 07:10 General: Appears in no apparent distress. comfortable, Behavior is calm, cooperative, rg5 appropriate for age. Pain: Denies pain. EENT: No deficits noted. Neuro: Level of Consciousness is awake, alert, Oriented to person, place, time. Cardiovascular: Denies chest pain, Heart tones S1 S2 Patient's skin is warm and dry. Respiratory: Airway is patent Trachea midline Respiratory effort is even, unlabored. GI: Abdomen is round non-distended, Abd is soft and non tender. : No signs and/or symptoms were reported regarding the genitourinary system. Derm: Skin is fragile, Skin is normal, Skin temperature is warm. Musculoskeletal: Circulation, motion, and sensation intact. Range of motion: intact in all extremities. Historical: - Allergies: 07:10 No Known Allergies; rg5 - PMHx: 07:10 CVA; rg5 - Immunization history:: Adult Immunizations unknown. - Infectious Disease History:: Denies. - Social history:: Smoking status: . - Family history:: not pertinent. - Hospitalizations: : No recent hospitalization is reported. Screenin:00 [facility] ED Fall Risk Assessment (Adult) History of falling in the last 3 months, rg5 including since admission Yes- single mechanical fall (1 pt) Confusion or Disorientation No (0 pts) Intoxicated or Sedated No (0 pts) Impaired Gait Yes (1 pt) Mobility Assist Device Used Yes (1 pt) Altered Elimination Yes (1 pt) Score/Fall Risk Level 3 or more points = High Risk Oriented to surroundings, Maintained a safe environment, Hourly rounding (assess needs \T\ fall precautionary measures) done. Abuse screen: Denies threats or abuse. Nutritional screening: No deficits noted. Tuberculosis screening: No symptoms or risk factors identified. Primary Survey: 07:00 NO uncontrolled hemorrhage observed. rg5 07:00 A: The client is awake and alert. The airway is patent. The client is alert. Airway: rg5 patent. Breathing/Chest: Spontaneous respiratory effort, equal unlabored respirations, breath sounds clear bilaterally, regular pattern, symmetrical chest rise and fall. Circulation: No external hemorrhage present. Regular and strong central pulse, skin warm/dry/normal color. Disability Pupils are equal, round, reactive to light and accommodation. Exposure/Environment: All clothing and personal items were removed. Forensic evidence collection is not deemed to be indicated at this time. Items placed in patient belonging bag. There is no evidence of uncontrolled external bleeding. 07:00 Reassessment Breathing: Spontaneous respiratory effort, equal unlabored respirations, rs5 breath sounds clear bilaterally, regular pattern with symmetrical chest rise and fall. Assessment: 07:00 Reassessment: see triage assessment. rg5 08:10 General: Appears in no apparent distress. comfortable, Behavior is calm, cooperative. rs5 Pain: Denies pain. Neuro: Level of Consciousness is awake, alert, obeys commands, Oriented to person, place, time, situation. Cardiovascular: Patient's skin is warm and dry. Respiratory: Airway is patent Respiratory effort is even, unlabored, Respiratory pattern is regular, symmetrical. GI: Abdomen is round non-distended, Abd is soft and non tender X 4 quads. : No signs and/or symptoms were reported regarding the genitourinary system. EENT: No signs and/or symptoms were reported regarding the EENT system. Derm: Skin is intact, Skin is pink, warm \T\ dry. Musculoskeletal: Range of motion: intact in all extremities, pt reports generalized weakness. 09:15 Reassessment: Patient and/or family updated on plan of care and expected duration. Pain rs5 level reassessed. Patient is alert, oriented x 3, equal unlabored respirations, skin warm/dry/pink. 10:22 Reassessment: Patient and/or family updated on plan of care and expected duration. Pain rs5 level reassessed. Patient is alert, oriented x 3, equal unlabored respirations, skin warm/dry/pink. 11:34 Reassessment: Patient and/or family updated on plan of care and expected duration. Pain rs5 level reassessed. Patient is alert, oriented x 3, equal unlabored respirations, skin warm/dry/pink. Vital Signs: 07:00 BP 107 / 74; Pulse 110; Resp 18; Temp 98.2(O); Pulse Ox 96% on R/A; Weight 102.06 kg; rg5 Height 6 ft. 0 in. ; Pain 0/10; 08:23 BP 122 / 81; Pulse 93; Resp 17; Pulse Ox 96% on 2 lpm NC; rs5 09:13 BP 123 / 77; Pulse 104; Resp 17; Pulse Ox 97% on 2 lpm NC; rs5 11:37 BP 118 / 76; Pulse 90; Resp 16; Pulse Ox 97% on 2 lpm NC; rs5 07:00 Body Mass Index 30.52 (102.06 kg, 182.88 cm) rg5 07:00 Pain Scale: Adult rg5 Ryan Coma Score: 07:00 Eye Response: spontaneous(4). Motor Response: obeys commands(6). Verbal Response: rg5 oriented(5). Total: 15. Trauma Score (Adult): 07:00 Eye Response: spontaneous(1); Verbal Response: oriented(1); Motor Response: obeys rg5 commands(2); Systolic BP: > 89 mm Hg(4); Respiratory Rate: 10 to 29 per min(4); Ryan Score: 15; Trauma Score: 12 ED Course: 06:56 Patient arrived in ED. rv1 06:58 Viktor Hawkins MD is Attending Physician. rn 07:00 Patient has correct armband on for positive identification. Bed in low position. Call rg5 light in reach. Side rails up X 1. Door closed. Noise minimized. Warm blanket given. Verbal reassurance given. 07:00 No provider procedures requiring assistance completed. rg5 07:00 Patient maintains SpO2 saturation greater than 95% on room air. rg5 07:01 See Light, RN is Primary Nurse. rs5 07:10 Triage completed. rg5 07:10 Arm band placed on right wrist. rg5 07:35 CT Head Brain wo Cont In Process Unspecified. EDMS 07:47 Chest Single View XRAY In Process Unspecified. EDMS 07:50 Inserted saline lock: 22 gauge in right upper arm, using aseptic technique. Blood ll1 collected. Flushed with 10 mL NS. 09:31 CT Abd/Pelvis - Without Contrast In Process Unspecified. EDMS 10:14 US Abdomen Limited In Process Unspecified. EDMS 10:24 Miguel A Ortiz is Hospitalizing Provider. rn 11:36 Patient admitted, IV remains in place. rs5 Administered Medications: 08:00 Drug: NS 0.9% IV 500 ml IV at bolus once; to be given as a bolus over 30 minutes Route: rs5 IV; Rate: bolus; Site: right upper arm; 08:40 Follow up: Response: No adverse reaction; IV Status: Completed infusion; IV Intake: rs5 500ml 11:00 Drug: Furosemide IVP 40 mg IVP once; give over 2 minutes Route: IVP; Site: right upper rs5 arm; 11:20 Follow up: Response: No adverse reaction rs5 Medication: 07:00 VIS not applicable for this client. rg5 Intake: 08:40 IV: 500ml; Total: 500ml. rs5 Outcome: 10:25 Decision to Hospitalize by Provider. rn 11:36 Admitted to Med/surg accompanied by tech, with chart, rs5 11:36 Condition: stable 11:36 Instructed on the need for admit, Demonstrated understanding of instructions, 11:39 Patient left the ED. rs5 Signatures: Dispatcher [employer] EDMS Viktor Hawkins MD MD rn Lewis, Lynsay, RN RN ll1 Niecy Goel rv1 See Light, RN RN rs5 Zaheer Rodriguez RN RN rg5 Corrections: (The following items were deleted from the chart) 07:18 07:00 Care prior to arrival: Oxygen administered. via nasal cannula, rg5 rg5 11:37 08:23 BP 122 / 81; Pulse 93bpm; Resp 17bpm; Pulse Ox 96% RA; rs5 rs5 11:37 09:13 BP 123 / 77; Pulse 104bpm; Resp 17bpm; Pulse Ox 97% RA; rs5 rs5
--- NOTE | 2024-01-20 10:26 | EDPHYS ---
Physician Documentation [facility] Name: Alireza Pulido Age: 83 yrs Sex: Male : 1940 Arrival Date: 01/20/2024 Time: 06:54 Bed 19 Private MD: ED Physician Viktor Hawkins HPI: 01/19 07:30 This 83 yrs old Male presents to ER via EMS with complaints of weakness. rn 07:30 Patient reports generalized weakness that began 2 days ago. Slid out of bed today rn without any injury or pain. Reports feels weak all over and has difficulty walking due to weakness. No bowel or bladder complaints. No abdominal pain. No vomiting or diarrhea. No chest pain. No shortness of breath. No fever or chills. . Onset: The symptoms/episode began/occurred 2 day(s) ago. Severity of symptoms: At their worst the symptoms were moderate in the emergency department the symptoms are unchanged. The patient has not experienced similar symptoms in the past. The patient has not recently seen a physician. Historical: - Allergies: 07:10 No Known Allergies; rg5 - PMHx: 07:10 CVA; rg5 - Immunization history:: Adult Immunizations unknown. - Infectious Disease History:: Denies. - Social history:: Smoking status: . - Family history:: not pertinent. - Hospitalizations: : No recent hospitalization is reported. ROS: 07:30 Constitutional: Negative for fever, chills, and weight loss, Eyes: Negative for injury, rn pain, redness, and discharge, Cardiovascular: Negative for chest pain, palpitations, and edema, Respiratory: Negative for shortness of breath, cough, wheezing, and pleuritic chest pain, Abdomen/GI: Negative for abdominal pain, nausea, vomiting, diarrhea, and constipation, Back: Negative for injury and pain, MS/Extremity: Negative for injury and deformity, Skin: Negative for injury, rash, and discoloration, Neuro: Positive for generalized weakness and malaise Exam: 07:30 Constitutional: This is a well developed, well nourished patient who is awake, alert, rn and in no acute distress. ENT: Dry mucous membranes Cardiovascular: Tachycardic, irregular Respiratory: No increased work of breathing, no retractions or nasal flaring. Abdomen/GI: Soft, non-tender MS/ Extremity: Pulses equal, no cyanosis. Neurovascular intact. Full, normal range of motion. Equal circumference. Neuro: Awake and alert, GCS 15, oriented to person, place, time, and situation. Cranial nerves II-XII grossly intact. Motor strength 4/5 in all extremities. Sensory grossly intact. Vital Signs: 07:00 BP 107 / 74; Pulse 110; Resp 18; Temp 98.2(O); Pulse Ox 96% on R/A; Weight 102.06 kg; rg5 Height 6 ft. 0 in. ; Pain 0/10; 08:23 BP 122 / 81; Pulse 93; Resp 17; Pulse Ox 96% on 2 lpm NC; rs5 09:13 BP 123 / 77; Pulse 104; Resp 17; Pulse Ox 97% on 2 lpm NC; rs5 11:37 BP 118 / 76; Pulse 90; Resp 16; Pulse Ox 97% on 2 lpm NC; rs5 07:00 Body Mass Index 30.52 (102.06 kg, 182.88 cm) rg5 07:00 Pain Scale: Adult rg5 York Coma Score: 07:00 Eye Response: spontaneous(4). Motor Response: obeys commands(6). Verbal Response: rg5 oriented(5). Total: 15. Trauma Score (Adult): 07:00 Eye Response: spontaneous(1); Verbal Response: oriented(1); Motor Response: obeys rg5 commands(2); Systolic BP: > 89 mm Hg(4); Respiratory Rate: 10 to 29 per min(4); York Score: 15; Trauma Score: 12 MDM: 06:59 Medical Screening Exam initiated rn 10:03 ED course: Patient clinically dry, given 500 cc bolus, subsequent testing and imaging rn show pulmonary edema, will not give further fluids.. 10:23 Differential Diagnosis weakness, dehydration, renal failure, infection. Data reviewed: rn vital signs, nurses notes, lab test result(s), EKG, radiologic studies, CT scan, plain films, and as a result, I will admit patient. Consideration of Admission/Observation Patient was admitted/placed on observation. Escalation of care including admission/observation considered. Counseling: I had a detailed discussion with the patient and/or guardian regarding the historical points, exam findings, and any diagnostic results supporting the discharge/admit diagnosis, lab results, radiology results, the need for further work-up and treatment in the hospital. 01/19 07:04 Order name: Basic Metabolic Panel; Complete Time: 08:50 rn 01/19 07:04 Order name: CBC with Diff; Complete Time: 08:50 rn 01/19 07:04 Order name: Hepatic Function; Complete Time: 08:50 rn 01/19 07:04 Order name: Magnesium; Complete Time: 08:51 rn 01/19 07:04 Order name: Protime (+inr); Complete Time: 08:50 rn 01/19 07:04 Order name: Ptt, Activated; Complete Time: 08:50 rn 01/19 07:04 Order name: Troponin High Sensitivity; Complete Time: 08:51 rn 01/19 07:04 Order name: Urinalysis w/ reflexes rn 01/19 07:04 Order name: Flu; Complete Time: 09:03 01/19 07:04 Order name: BNP; Complete Time: 08:50 01/19 07:04 Order name: CT Head Brain wo Cont; Complete Time: 07:53 rn 01/19 07:04 Order name: Chest Single View XRAY; Complete Time: 07:53 rn 01/19 08:52 Order name: CT Abd/Pelvis - Without Contrast; Complete Time: 09:41 rn 01/19 08:52 Order name: US Abdomen Limited; Complete Time: 10:22 rn 01/19 07:04 Order name: Cardiac monitoring; Complete Time: 08:20 01/19 07:04 Order name: EKG - Nurse/Tech; Complete Time: 08:20 01/19 07:04 Order name: IV Saline Lock; Complete Time: 08:20 rn 01/19 07:04 Order name: Labs collected and sent; Complete Time: 08:20 rn 01/19 07:04 Order name: O2 Per Protocol; Complete Time: 08:20 rn 01/19 07:04 Order name: O2 Sat Monitoring; Complete Time: 08:20 rn Administered Medications: 08:00 Drug: NS 0.9% IV 500 ml IV at bolus once; to be given as a bolus over 30 minutes Route: rs5 IV; Rate: bolus; Site: right upper arm; 08:40 Follow up: Response: No adverse reaction; IV Status: Completed infusion; IV Intake: rs5 500ml 11:00 Drug: Furosemide IVP 40 mg IVP once; give over 2 minutes Route: IVP; Site: right upper rs5 arm; 11:20 Follow up: Response: No adverse reaction rs5 Disposition Summary: 01/20/24 10:25 Hospitalization Ordered Notes: Hospitalization Status: Observation rn Provider: Miguel A Ortiz rn Location: Telemetry/MedSurg (observation) rn Condition: Stable rn Problem: new rn Symptoms: have improved rn Bed/Room Type: Standard rn Room Assignment: 212(01/20/24 11:12) ap3 Diagnosis - Weakness rn - Dehydration rn - Hypokalemia rn - Unspecified combined systolic (congestive) and diastolic (congestive) heart failure rn Forms: - Medication Reconciliation Form rn - SBAR form rn - Leadership Thank You Letter rn Signatures: Dispatcher [employer] EDMS Viktor Hawkins MD MD rn Attema, Lee, MACHINE TOOL TECHNICIAN INSTRUCTOR-C MACHINE TOOL TECHNICIAN INSTRUCTOR-Cla1 Joyce Medina RN RN ap3 See Light RN RN rs5 Karen Irvin bc6 Zaheer Rodriguez RN RN rg5 Corrections: (The following items were deleted from the chart) 07:04 07:04 BASIC METABOLIC PANEL+C.LAB.BRZ ordered. EDMS EDMS 07:04 07:04 CBC+H.LAB.BRZ ordered. EDMS EDMS 07:04 07:04 HEPATIC FUNCTION+C.LAB.BRZ ordered. EDMS EDMS 07:04 07:04 MAGNESIUM+C.LAB.BRZ ordered. EDMS EDMS 07:04 07:04 PROTIME (+INR)+COAG.LAB.BRZ ordered. EDMS EDMS 07:04 07:04 PTT, ACTIVATED+COAG.LAB.BRZ ordered. EDMS EDMS 07:04 07:04 Troponin High Sensitivity+C.LAB.BRZ ordered. EDMS EDMS 07:04 07:04 Urinalysis+U.LAB.BRZ ordered. EDMS EDMS 07:04 07:04 Influenza Screen (A \T\ B)+BA.LAB.BRZ ordered. EDMS EDMS 07:04 07:04 Head Brain Wo Cont+CT.RAD.BRZ ordered. EDMS EDMS 07:05 07:05 Chest Single View+RAD.RAD.BRZ ordered. EDMS EDMS 08:52 08:52 Abdomen Limited+US.RAD.BRZ ordered. EDMS EDMS 10:32 07:30 Constitutional: This is a well developed, well nourished patient who is awake, rn alert, and in no acute distress. ENT: Dry mucous membranes Cardiovascular: Tachycardic, regular Respiratory: No increased work of breathing, no retractions or nasal flaring. Abdomen/GI: Soft, non-tender MS/ Extremity: Pulses equal, no cyanosis. Neurovascular intact. Full, normal range of motion. Equal circumference. Neuro: Awake and alert, GCS 15, oriented to person, place, time, and situation. Cranial nerves II-XII grossly intact. Motor strength 4/5 in all extremities. Sensory grossly intact. rn 10:51 10:25 rn bc6 11:12 10:51 218 bc6 ap3
[2024-01-20] MEDS ORDERED: FUROSEMIDE 40 MG/4 ML VIAL ONE (10:49)
--- NOTE | 2024-01-20 11:07 | P.HP ---
Certification for Inpatient Patient admitted to: Observation Patient will require the following post-hospital care: None Practitioner: I am a practitioner with admitting privileges, knowledge of patient current condition, hospital course, and medical plan of care. Services: Services provided to patient in accordance with Admission requirements found in Title 42 Section 412.3 of the Code of Federal Regulations Patient History Date of Service: 01/20/24 Reason for admission: CHF exacerbation History of Present Illness: 83-year-old male with history of CHFunknown EF, atrial fibrillation status post Watchman procedure, hyperlipidemia, chronically low blood pressure on midodrine presented to the emergency department for chief complaint of shortness of breath, weakness. He reports for the last few days when speaking in long sentences or walking he gets short of breath and today he was sitting on the edge of his bed and too weak to move to a standing position. At home he uses a walker most the time but does ambulate sometimes without a walker, also does have a wheelchair at the house. He was evaluated in the emergency department and his labs were significant for a creatinine of 1.69 bicarb 35 BNP 8237. His T. bili was mildly elevated, CT of the abdomen pelvis was performed which was negative for acute findings, abdominal ultrasound showed cholelithiasis without signs of cholecystitis, head CT is negative for acute findings, chest x-ray showed moderate bilateral pleural effusions and probably underlying atelectasis, likely pulmonary edema. Patient will be admitted for further management of weakness, CHF exacerbation. - Past Medical/Surgical History -: CHFunknown EF -: A-fib with Watchman -: Chronic hypotension on midodrine -: Hyperlipidemia -: Watchman procedure Psychosocial/ Personal History: Lives at home with his - Family History Family History: Reviewed- Non-Contributory - Social History Smoking Status: Never smoker Alcohol use: No CD- Drugs: No Caffeine use: Yes Place of Residence: Home Review of Systems 10-point ROS is otherwise unremarkable General: Weakness Respiratory: Shortness of Breath Physical Examination - Physical Exam General: Alert, In no apparent distress, Oriented x3 HEENT: Atraumatic, PERRLA, Mucous membr. moist/pink, EOMI Neck: Supple Respiratory: Normal air movement, Diminished Cardiovascular: Regular rate/rhythm, Normal S1 S2 Gastrointestinal: Normal bowel sounds, No tenderness Musculoskeletal: No tenderness Integumentary: No rashes Neurological: Normal speech, Normal strength at 5/5 x4 extr, Normal affect Lymphatics: No axilla or inguinal lymphadenopathy - Studies Laboratory Data (last 24 hrs) 01/20/24 01/20/24 01/20/24 07:55 07:55 07:55 WBC 10.40 Hgb 11.3 L Hct 34.5 L Plt Count 225 PT 14.3 H INR 1.29 APTT 23.5 L Sodium 140 Potassium 3.0 L BUN 21 H Creatinine 1.69 H Glucose 114 H Magnesium 1.9 Total Bilirubin 1.4 H AST 22 ALT 22 Alkaline Phosphatase 146 H Microbiology Data (last 24 hrs): 01/20/24 08:12 Nasopharnyx Influenza Type A Antigen Screen - Final 01/20/24 08:12 Nasopharnyx Influenza Type B Antigen Screen - Final Assessment and Plan - Plan Assessment: Acute on chronic CHFunknown EF Deconditioning/weakness Atrial fibrillation status post Watchman procedure CKD Hyperlipidemia Chronic hypotension Plan: Acute on chronic CHFunknown EF Takes Lasix 40 mg daily Will increase to 40 IV twice daily for now Monitor renal function closely Will obtain echocardiogram, cardiology consultation Chest x-ray shows pleural effusions/possible pulmonary edema Deconditioning/weakness PT consult Has home health but no longer has home PT per Atrial fibrillation status post Watchman procedure Continue daily aspirin Not on rate control meds CKD Monitor chemistry daily Hyperlipidemia Atorvastatin continued Chronic hypotension Midodrine 10 mg 3 times daily, fludrocortisone 0.1 mg daily continue DVT PPX: Lovenox Code status: Full Discharge Plan: Home Plan to discharge in: 24 Hours - Advance Directives Does patient have a Living Will: No Does patient have a Durable POA for Healthcare: No - Code Status/Comfort Care Code Status Assessed: Yes (Full code) Critical Care: No Time Spent Managing Pts Care (In Minutes): 56
[2024-01-20] MEDS ORDERED: ACETAMINOPHEN 325 MG TABLET PO PRN (13:02)
[2024-01-20] MEDS ORDERED: ONDANSETRON 4 MG/2 ML VIAL IV PRN (13:02)
[2024-01-20] MEDS: MIDODRINE HCL 5 MG TABLET PO SCH (14:00)
[2024-01-20] MEDS: FUROSEMIDE 40 MG/4 ML VIAL IV SCH (16:15)
[2024-01-20] MEDS: POTASSIUM 25 MEQ EFFERV TAB PO ONE (21:23)
[2024-01-20] MEDS: ATORVASTATIN 40 MG TAB PO SCH (21:23)
[2024-01-21 05:29] LABS: Absolute Basophils 0.1 K/uL (0-0.5); Absolute Eosinophils 0.3 K/uL (0-0.5); Absolute Lymphocytes (CBC) 1.5 K/uL (0.7-4.9); Absolute Neutrophil 7.4 K/uL (1.8-8.0); Basophils % 1.2 % (0-1.3); Eosinophils % 2.5 % (0-4.4); Hemoglobin 10.8 g/dL (13.6-17.9); Lymphocytes % 14.3 % (15.3-44.8); MCH 32.9 pg (27.0-35.0); MCHC 32.9 g/dL (32.0-36.0); MCV 100.1 fL (80-100); MPV 7.5 fL (7.6-11.3); Monocytes % 10.1 % (3.3-12.3); Neutrophils % 71.9 % (41.7-73.7); Nucleated Red Blood Cells % 0.1 % (0-0); Platelets 212 thou/uL (152-406); RBC Red Blood Cell Count 3.29 M/uL (4.33-5.43); Red Cell Distribution Width 15.8 % (12.1-15.2)
[2024-01-21 05:45] LABS: Albumin 2.6 g/dL (3.4-5.0); Albumin/Globulin Ratio 0.7 (1.1-1.8); Anion Gap 9.1 mEq/L (5.0-15.0); Bilirubin Total 0.9 mg/dL (0.2-1.0); Potassium 3.1 mEq/L (3.5-5.1); Protein, Total 6.6 g/dL (6.4-8.2); Thyroid Stimulating Hormone 2.41 uIU/mL (0.358-3.740)
[2024-01-21] MEDS: ENOXAPARIN 40 MG/0.4 ML SQ SCH (09:51)
[2024-01-21] MEDS: ASPIRIN EC 81 MG TAB PO SCH (09:51)
[2024-01-21] MEDS: FLUDROCORTISONE 0.1 MG TAB PO SCH (09:51)
--- NOTE | 2024-01-21 09:53 | CON ---
Date of Consultation: 01/21/2024 Reason For Consultation: CHF. History Of Present Illness: This is an 83-year-old male with a past medical history of atrial fibril lation, CHF, hypertension, dyslipidemia, presented to the emergency room with shortness of breath, lo wer extremity edema, and generalized weakness and that has been going on for a few days. Able to spe ak long sentences. He apparently was admitted, started on diuresis. He appears to be doing much bet ter today and does not have any significant shortness of breath. He is just generally weak. Denies having any chest pain. Past Medical History: As outlined above in the HPI. Medications: Refer to reconciliation sheet for detailed list. Allergies: NO KNOWN DRUG ALLERGIES. Family History: No premature coronary artery disease or cancer. Social History: He does not smoke or drink. Does not use any drugs. Review of Systems: All systems were reviewed and they were negative except as mentioned in the HPI. Physical Examination: Vital Signs: Reviewed. Head and Neck: Pupils are equal, reactive to light. Intact eye movements. No JVD. No cervical lym phadenopathy. Neck is supple. Thyroid is not enlarged. Lungs: Clear to auscultation bilaterally. No rhonchi, wheezing, or crackles. No accessory muscle u se. Heart: Irregular. No extra sounds. Abdomen: Soft, nontender. Bowel sounds positive. No organomegaly. No masses or hernia. No rigidi ty or rebound. Extremities: There is no clubbing or cyanosis. No edema. Neurologic: Alert, awake, oriented x3. No acute focal deficits appreciated. Investigations: BUN 26, creatinine 1.82. Hemoglobin 10.8, and the troponin is negative. Assessment And Recommendations: 1.Acute on chronic diastolic heart failure exacerbation, responded well to diuretics, and BUN and cr eatinine is going up. I recommend to switch the Lasix to oral and monitor carefully BUN and creatini ne and electrolytes, switch him to oral 40 mg once a day. 2.Hypertension. Blood pressure is controlled. 3.Dyslipidemia. Continue atorvastatin. 4.Acute on chronic renal failure. His creatinine is close to his baseline. 5.Atrial fibrillation, rate is controlled, status post appendage closure. Continue aspirin. SR/MODL Voice ID: [id number] Report ID: [id number]
--- NOTE | 2024-01-21 13:54 | P.PN ---
Date of Service: 01/21/24 Subjective Awake, conversing well, hard of hearing on 2 LNC but not on home oxygen no new complaints ROS 10 point ROS as noted above, otherwise negative Physical Exam General: Alert and Oriented x3, NAD HEENT: Atraumatic, PERRLA, Mucous membr. 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 Takes Lasix 40 mg daily, will continue lasix 40 IV twice daily stopped per cardiology strict intake/outake for UOP Monitor renal function closely awaiting echocardiogram, cardiology consultation Chest x-ray shows pleural effusions/possible pulmonary edema Deconditioning/weakness PT consult Has home health but no longer has home PT per orthostatic vitals Atrial fibrillation status post Watchman procedure Continue daily aspirin Not on rate control meds CKD Hypokalemia Monitor chemistry daily BUN/creatinine 26/1.82, GFR 36-slight bump in creatinine potassium 3.1 Hyperlipidemia Atorvastatin continued Chronic hypotension Midodrine 10 mg 3 times daily, fludrocortisone 0.1 mg daily continue DVT PPX: Lovenox Code status: Full Discharge Plan: Home Plan to discharge in: 24 Hours <Camilla Alcocer - Last Filed: 01/21/24 13:38> Patient seen and examined, plan of care discussed with Ms. Alcocer. Patient is maintained on 2 L oxygen by nasal canula Status post IV Lasix. IV Lasix transition to oral Lasix Cardiology input appreciated PT evaluation. Wean oxygen as tolerated. <aubrey jenkins - Last Filed: 01/21/24 17:55>
[2024-01-21 19:24] VITALS: BMI 4393.8
[2024-01-21] MEDS: POTASSIUM 25 MEQ EFFERV TAB ONE (21:36)
[2024-01-21] MEDS: POTASSIUM 25 MEQ EFFERV TAB PO ONE (21:47)
[2024-01-22 06:07] LABS: Absolute Eosinophils 0.3 K/uL (0-0.5); Absolute Lymphocytes (CBC) 1.2 K/uL (0.7-4.9); Absolute Monocytes 0.7 K/uL (0.1-1.3); Absolute Neutrophil 6.1 K/uL (1.8-8.0); Basophils % 0.3 % (0-1.3); Eosinophils % 3.7 % (0-4.4); Hemoglobin 10.7 g/dL (13.6-17.9); Lymphocytes % 14.3 % (15.3-44.8); MCH 34.1 pg (27.0-35.0); MCHC 34.5 g/dL (32.0-36.0); MCV 98.8 fL (80-100); MPV 7.1 fL (7.6-11.3); Monocytes % 8.8 % (3.3-12.3); Neutrophils % 72.9 % (41.7-73.7); Platelets 242 thou/uL (152-406); RBC Red Blood Cell Count 3.14 M/uL (4.33-5.43); Red Cell Distribution Width 14.9 % (12.1-15.2)
[2024-01-22 06:19] LABS: Albumin 2.4 g/dL (3.4-5.0); Albumin/Globulin Ratio 0.6 (1.1-1.8); Anion Gap 9.4 mEq/L (5.0-15.0); Bilirubin Total 0.6 mg/dL (0.2-1.0); Potassium 3.4 mEq/L (3.5-5.1); Protein, Total 6.4 g/dL (6.4-8.2)
[2024-01-22 07:27] VITALS: O2SAT 100
--- NOTE | 2024-01-22 07:42 | P.PN ---
Date of Service: 01/22/24 Subjective ROS 10 point ROS as noted above, otherwise negative Physical Exam General: Alert and Oriented x3, NAD HEENT: Atraumatic, PERRLA, Mucous membr. 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 Lasix 40 PO daily, per cardiology strict intake/outake for UOP Monitor renal function closely awaiting echocardiogram, cardiology consultation Chest x-ray shows pleural effusions/possible pulmonary edema Deconditioning/weakness PT consult Has home health but no longer has home PT per orthostatic vitals Atrial fibrillation status post Watchman procedure Continue daily aspirin Not on rate control meds CKD Hypokalemia Monitor chemistry daily BUN/creatinine /.56, GFR 43 potassium 3.4 Hyperlipidemia Atorvastatin continued Chronic hypotension Midodrine 10 mg 3 times daily, fludrocortisone 0.1 mg daily continue DVT PPX: Lovenox Code status: Full Discharge Plan: Home Plan to discharge in: 24 Hours
[2024-01-22 09:09] VITALS: BP 140/90; TEMP 97.6
[2024-01-22] MEDS: FUROSEMIDE 40 MG TABLET PO SCH (09:17)
--- NOTE | 2024-01-22 13:16 | P.DS ---
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 He reports for the last few days when speaking in long sentences or walking he gets short of breath and today he was sitting on the edge of his bed and too weak to move to a standing position. At home he uses a walker most the time but does ambulate sometimes without a walker, also does have a wheelchair at the house. He was evaluated in the emergency department and his labs were significant for a creatinine of 1.69 bicarb 35 BNP 8237. His T. bili was mildly elevated, CT of the abdomen pelvis was performed which was negative for acute findings, abdominal ultrasound showed cholelithiasis without signs of cholecystitis, head CT is negative for acute findings, chest x-ray showed moderate bilateral pleural effusions and probably underlying atelectasis, likely pulmonary edema. Patient will be admitted for further management of weakness, CHF exacerbation. Hospital Course: Alireza Pulido is a pleasant 83 year old male with a past medical history significant for CHFunknown EF, atrial fibrillation status post Watchman procedure, hyperlipidemia, chronically low blood pressure who was admitted to the [facility] on 01/20/24 for Weakness and CHF exacerbation. Alireza presented to the ED due to weakness, he was found to have CHF exacerbation tolerating Lasix and electrolyte replacement well. He has chronic h ypotension and takes midodrine. Orthostatic vitals showed mild increase in heart rate and drop in blood pressure. He was placed on oxygen overnight but room saturations are currently 94%. He was able to ambulate 70 feet on room air with physical therapy. Home health with physical therapy will assist at home. He has tolerated PO diet, denies chest pain and SOB, and has remained hemodynamically stable. He will follow up with cardiology for an outpatient ECHO and continue maintenance of atrial fibrillation and hypotension. On 01/22/24, Alireza was seen on morning rounds and deemed medically stable for discharge with family and HH/PT. Alireza was discharged with instructions to schedule follow-up appointments with cardiology and PCP. Alireza was provided prescriptions for potassium. Physical Exam General: AAO x3, NAD HEENT: Atraumatic, PERRLA, MMM Neck: Supple, trachea midline Respiratory: Clear BBS, nonlabored breathing, on RA Cardiovascular: Afib with heart rate control, Normal S1 S2 present Gastrointestinal: Normal bowel sounds, No tenderness, soft on palpation Musculoskeletal: No tenderness Integumentary: No rashes Neurological: Normal speech, Normal strength at 5/5 x4 extr, Normal affect Lymphatics: No axilla or inguinal lymphadenopathy Vital Signs/Physical Exam: Temp Pulse Resp BP Pulse Ox 97.6 F 93 H 15 140/90 98 01/22/24 08:00 01/22/24 09:17 01/22/24 08:00 01/22/24 09:17 01/22/24 08:00 Laboratory Data at Discharge: WBC 8.40 thou/uL (4.3-10.9) 01/22/24 05:33 Hgb 10.7 g/dL (13.6-17.9) L 01/22/24 05:33 Hct 31.0 % (39.6-49.0) L 01/22/24 05:33 Plt Count 242 thou/uL (152-406) 01/22/24 05:33 PT 14.3 SECONDS (9.4-12.5) H 01/20/24 07:55 INR 1.29 01/20/24 07:55 APTT 23.5 SECONDS (24.3-36.9) L 01/20/24 07:55 Sodium 141 mEq/L (136-145) 01/22/24 05:33 Potassium 3.4 mEq/L (3.5-5.1) L 01/22/24 05:33 BUN 24 mg/dL (7-18) H 01/22/24 05:33 Creatinine 1.56 mg/dL (0.70-1.30) H 01/22/24 05:33 Glucose 135 mg/dL (74-106) H 01/22/24 05:33 Magnesium 1.9 mg/dL (1.6-2.4) 01/20/24 07:55 Total Bilirubin 0.6 mg/dL (0.2-1.0) 01/22/24 05:33 AST 23 U/L (15-37) 01/22/24 05:33 ALT 23 U/L (16-61) 01/22/24 05:33 Alkaline Phosphatase 139 U/L (45-117) H 01/22/24 05:33 Home Medications: Atorvastatin Calcium 40 mg PO DAILY 01/20/24 Fludrocortisone [Florinef *] 0.1 mg PO DAILY 01/20/24 Furosemide 40 mg PO DAILY 01/20/24 Midodrine HCl 10 mg PO TID 01/20/24 Atorvastatin Calcium [Lipitor] 40 mg PO BEDTIME 30 Days #0 tab 01/22/24 Fludrocortisone [Florinef *] 0.1 mg PO DAILY tab 01/22/24 Furosemide [Lasix*] 40 mg PO DAILY 30 Days #0 tab 01/22/24 Midodrine HCl [Proamatine*] 10 mg PO TID 30 Days #0 tab 01/22/24 Potassium Oral Tab [Klor-Con 10 mEq Tab*] 20 meq PO DAILY 30 Days #60 tab 01/22/24 New Medications: Potassium Oral Tab [Klor-Con 10 mEq Tab*] 20 meq PO DAILY 30 Days #60 tab Physician Discharge Instructions: PROBLEM: CHF exacerbation GOAL: Clear understanding of disease process INSTRUCTIONS: 1. Please call and schedule a follow-up appointment with your PCP in 3-5 days - Please follow-up with your PCP for medication refills/adjustments -Check blood pressure and heart rate, keep record for you service captain and PCP 2. Please call and schedule a follow-up appointment with cardiology in 1-2 weeks -Will need ECHO outpatient 3. Continue heart healthy diet 4. activity restrictions, fall precautions, please work with home health physical therapy 5. Return to the ED if symptoms worsen New medications Potassium 20 mEq daily while taking lasix daily - Printed Return to ER for any emergency Call 2nd floor nurse's station for any questions about your stay [phone] Follow up with your Primary Physician - call for appointment Take medications as prescribed Diet: AHA Activity: Follow up with a Family Medicine Physician of your choice: DOUGIE GALVAN MD [address] [place] [address], [address] [place] [address] ACCEPTING NEW PATIENTS! ANGELICA CHI MD [address] [facility], [address] [place] [address] ACCEPTING NEW PATIENTS! ALETHEA BUCHANAN, DO [address] [address] JAMIE CELESTIN MD [address] [facility], [address] [place] [address] ESDRAS MERRITT MD [address] [facility], [address] [place] [address] MARIAN KWON MD [address] [facility] [place] [address] LIU NUNEZ MD [address] [place] [address] ZITA RODRÍGUEZ, [facility] [address] [facility], [address] [place] [address] MARY CARRILLO MD [address] [facility], [address] [place] [address] EILEEN CARRILLO APRN [facility] [address] [facility], [address] [place] [address] BERTACheryl WU DO [address] [facility], [address] [place] [address] Diet: AHA Followup: NONE,NONE [Primary Care Provider] - BILL ROLDAN JR [OUTSIDE PHYSICIAN] -
--- NOTE | 2024-01-24 10:22 | EKG ---
Test Date: 2024-01-20 Test Time: 08:09:33 Data Processing Supervisor: ELOINA MEASUREMENT RESULTS: Intervals: Rate: 86 UT: QRSD: 94 QT: 316 QTc: 378 [place]: P: UT: QRS: 55 T: 168 INTERPRETIVE STATEMENTS: Atrial fibrillation ST & T wave abnormality, consider inferior ischemia or digitalis effect Abnormal ECG Compared to ECG 12/02/2019 08:30:30 Possible ischemia now present Myocardial infarct finding no longer present ST (T wave) deviation still present Electronically Signed On 01-24-24 10:20:23 [employer]UBERCULOS[employer] SPECIALIST by Kyle Obrien
== END 2024-01-22 13:23 | disposition home health service (06) | DRG 291 ==
LOC: ER 06:54 → ERHOLD 10:46 → 2ND 11:21 → OBSVTOIN 01-21 14:17
PROVIDERS: ADMIT Internal Medicine; ATTEND Internal Medicine
DX: I13.0 Hypertensive heart and chronic kidney disease with heart failure and stage 1 through stage 4 chronic kidney disease, or unspecified chronic kidney disease (principal); I50.33 Acute on chronic diastolic (congestive) heart failure; N17.9 Acute kidney failure, unspecified; N18.9 Chronic kidney disease, unspecified; E86.0 Dehydration; E87.6 Hypokalemia; I95.89 Other hypotension; I48.91 Unspecified atrial fibrillation; E78.5 Hyperlipidemia, unspecified; K80.20 Calculus of gallbladder without cholecystitis without obstruction; Z86.73 Personal history of transient ischemic attack (TIA), and cerebral infarction without residual deficits
CPT/HCPCS: 36415; 70450; 71045; 74176; 76705; 80048; 80053; 80076; 82947; 83735; 83880; 84439; 84443; 84484; 85025; 85610; 85730; 87804; 93005; 96361; 96374; 97116; 97161; 97530; 99285; G0378; J1650; J1940; J7040